=== PATIENT | male | born 1975 | race Caucasian/White ===

== ENCOUNTER 2017-09-16 11:54 | Inpatient (IN) | payer OTHER ==
[~2017-09-16] VITALS: Ht 181.6 cm; Wt 75.9 kg
[2017-09-16 12:51] LABS: BASOPHIL % 0.2 % (0-2); PLATELET COUNT 204 x10^3mcL (130-400); RED CELL DISTRIBUTION WIDTH 13.4 % (11.5-14.5)
[2017-09-16 13:15] LABS: CALCIUM 9.1 mg/dL (8.5-10.1); CARBON DIOXIDE 30.7 mmol/L (21-32); CHLORIDE SERUM 102 mmol/L (98-107); CREATININE SERUM 0.9 mg/dL (0.7-1.3); GFR1 > 60 mL/min; GLUCOSE SERUM 97 mg/dL (74-106); POTASSIUM SERUM 4.7 mmol/L (3.5-5.1); SODIUM SERUM 141 mmol/L (136-145)
[2017-09-16 13:19] LABS: T3 TOTAL 1.05 ng/mL
[2017-09-16 13:23] LABS: FREE T4 0.99 ng/dL (0.76-1.46); FREE THYROXINE INDEX 2.7 ug/dL (1.4-4.5); T4(THYROXINE) 7.9 ug/dL (4.7-13.3)
[2017-09-16 13:26] LABS: ALBUMIN 4.3 g/dL (3.4-5.0); ALKALINE PHOSPHATASE 70 U/L (46-116); ALT/SGPT 19 U/L (16-63); AST/SGOT 15 U/L (15-37); BILIRUBIN TOTAL 0.4 mg/dL (0.20-1.00); C REACTIVE PROTEIN 0.5 mg/dL (<=0.9); CK-MB < 0.5 ng/mL (0-3.6); CREATINE KINASE 105 U/L (39-308)
[2017-09-16 13:31] LABS: TOTAL PROTEIN, SERUM 8.3 g/dL (6.4-8.2)
[2017-09-16 13:59] LABS: UA SPECIFIC GRAVITY <=1.005 (1.005-1.035); microscopic required? YES; urine erythrocyte 1+ (NEGATIVE)
[2017-09-16 14:15] LABS: ERYTHROCYTE SED RATE 15 mm/hr (0-15)
[2017-09-16 14:20] VITALS: BP 105/58
[2017-09-16 14:53] VITALS: BP 105/58
[2017-09-16 14:57] VITALS: Ht 181.6 cm; Wt 75.9 kg
[2017-09-16 16:33] LABS: CHOLESTEROL/HDL RATIO 2.3; MAGNESIUM 1.9 mg/dL (1.8-2.4); PHOSPHOROUS 4.2 mg/dL (2.5-4.9)
[2017-09-16 18:11] VITALS: BP 106/58
[2017-09-16 22:16] VITALS: BP 122/71
[2017-09-17 06:31] LABS: BASOPHIL % 0.3 % (0-2); PLATELET COUNT 198 x10^3mcL (130-400); RED CELL DISTRIBUTION WIDTH 13.5 % (11.5-14.5)
[2017-09-17 06:34] LABS: CALCIUM 8.4 mg/dL (8.5-10.1); CARBON DIOXIDE 30.4 mmol/L (21-32); CHLORIDE SERUM 104 mmol/L (98-107); GFR1 > 60 mL/min; GLUCOSE SERUM 104 mg/dL (74-106); POTASSIUM SERUM 4.2 mmol/L (3.5-5.1); SODIUM SERUM 142 mmol/L (136-145)
[2017-09-17 06:37] VITALS: BP 120/79
[2017-09-17 10:59] VITALS: BP 107/54
[2017-09-17 14:02] VITALS: BP 113/70
[2017-09-17 15:56] VITALS: BP 146/81
[2017-09-17 18:24] VITALS: BP 109/58
[2017-09-17 21:00] VITALS: BP 94/56
[2017-09-18 06:24] VITALS: BP 106/63
[2017-09-18 06:46] LABS: CALCIUM 8.5 mg/dL (8.5-10.1); CARBON DIOXIDE 28.9 mmol/L (21-32); CHLORIDE SERUM 107 mmol/L (98-107); CREATININE SERUM 0.8 mg/dL (0.7-1.3); GFR1 > 60 mL/min; GLUCOSE SERUM 101 mg/dL (74-106); MAGNESIUM 1.8 mg/dL (1.8-2.4); PHOSPHOROUS 3.6 mg/dL (2.5-4.9); POTASSIUM SERUM 4.5 mmol/L (3.5-5.1); SODIUM SERUM 143 mmol/L (136-145)
[2017-09-18 07:05] LABS: BASOPHIL % 0.3 % (0-2); PLATELET COUNT 194 x10^3mcL (130-400); RED CELL DISTRIBUTION WIDTH 13.3 % (11.5-14.5)
[2017-09-18 10:35] VITALS: BP 113/72
[2017-09-18 13:48] VITALS: BP 123/67
[2017-09-18 17:33] VITALS: BP 111/73
[2017-09-18 21:24] VITALS: BP 113/63
[2017-09-19 05:57] VITALS: BP 114/73
[2017-09-19 07:37] LABS: BASOPHIL % 0.4 % (0-2); PLATELET COUNT 201 x10^3mcL (130-400); RED CELL DISTRIBUTION WIDTH 13.3 % (11.5-14.5)
[2017-09-19 07:48] LABS: CALCIUM 8.8 mg/dL (8.5-10.1); CARBON DIOXIDE 29.9 mmol/L (21-32); CHLORIDE SERUM 106 mmol/L (98-107); CREATININE SERUM 0.7 mg/dL (0.7-1.3); GFR1 > 60 mL/min; GLUCOSE SERUM 91 mg/dL (74-106); MAGNESIUM 1.8 mg/dL (1.8-2.4); PHOSPHOROUS 3.2 mg/dL (2.5-4.9); POTASSIUM SERUM 4.1 mmol/L (3.5-5.1); SODIUM SERUM 144 mmol/L (136-145)
[2017-09-19 09:45] VITALS: BP 123/63
[2017-09-19 13:17] VITALS: BP 115/57
[2017-09-19 17:45] VITALS: BP 119/69
[2017-09-19 21:03] VITALS: BP 120/54
[2017-09-20 05:11] VITALS: BP 99/52
[2017-09-20 06:46] LABS: BASOPHIL % 0.4 % (0-2); PLATELET COUNT 205 x10^3mcL (130-400); RED CELL DISTRIBUTION WIDTH 13.1 % (11.5-14.5)
[2017-09-20 06:56] LABS: CALCIUM 8.5 mg/dL (8.5-10.1); CARBON DIOXIDE 27.3 mmol/L (21-32); CHLORIDE SERUM 106 mmol/L (98-107); CREATININE SERUM 0.8 mg/dL (0.7-1.3); GFR1 > 60 mL/min; GLUCOSE SERUM 87 mg/dL (74-106); POTASSIUM SERUM 4.1 mmol/L (3.5-5.1); SODIUM SERUM 143 mmol/L (136-145)
[2017-09-20 08:13] VITALS: BP 119/74
[2017-09-20 08:20] VITALS: BP 118/69
[2017-09-20] MEDS ORDERED: DICLOXACILLIN500 MG PO (10:36)
[2017-09-20] MEDS ORDERED: MOT800 PO (10:37)
[2017-09-20] MEDS ORDERED: LAC PO (10:37)
[2017-09-20] MEDS ORDERED: [UNRECOGNIZED DRUG - OTHER] OD (11:25)
[2017-09-20 11:50] VITALS: BP 118/69
[2017-09-20 13:01] VITALS: BP 103/61
== END 2017-09-20 13:18 | disposition home or self-care (01) | DRG 125 ==
LOC: ED 11:54 → EDBD 11:54 → DU 13:51
PROVIDERS: Family Medicine; Ophthalmology; Specialist
PROC: 0H91XZZ Drainage of Face Skin, External Approach (ICD-10-PCS; principal; 2017-09-17 14:00)
DX: H00.031 Abscess of right upper eyelid (principal); L03.213 Periorbital cellulitis; R31.9 Hematuria, unspecified; B95.61 Methicillin susceptible Staphylococcus aureus infection as the cause of diseases classified elsewhere; E83.51 Hypocalcemia; Z68.23 Body mass index [BMI] 23.0-23.9, adult
CPT/HCPCS: 83880; 84439; 90658; J0696; J1170; J1885; J2001; J2250; J2405; J2543; J2704; J3010; J3370; J3490; J7030; J7050; J7120; Q0092; Q9967